=== PATIENT | male | born 1975 | race Caucasian/White ===

== ENCOUNTER 2017-05-02 07:43 | Emergency (ER) | payer MEDICAID, OTHER, SELFPAY ==
[2017-05-02] MEDS ORDERED: Sodium Chloride 0.9% 10 ML Syringe FLUSH PRN (08:08)
[2017-05-02] MEDS ORDERED: Ondansetron 4 MG/2 ML SDV IVPUSH ONE (08:08)
[2017-05-02] MEDS ORDERED: HYDROmorphone 1 MG/ML Syringe IVPUSH ONE (08:08)
[2017-05-02] MEDS ORDERED: Sodium Chloride 0.9% 1,000 ML IV SCH (08:15)
--- NOTE | 2017-05-02 10:45 | CT ---
CT abdomen and pelvis Technique: Multiple axial sections were obtained from above the dome of the diaphragm inferiorly through the pubic symphysis. Intravenous and oral contrast was not utilized. Study has been performed as a ureteral stone protocol. Findings: Left sided hydronephrosis is seen. Inflammatory change is seen around the left kidney and proximal left ureter. These findings are caused by an obstructing stone within the mid to distal left ureter measuring about 4.5 mm. This stone occurs approximately 4.5 cm from the UVJ. No other abnormal calcifications are seen along the course of the ureters. 2 nonobstructing calculi are seen within the left kidney. Right kidney shows no abnormal calcifications. Visualized lung bases shows minimal atelectasis. Liver shows no focal parenchymal abnormality. Spleen appears within normal limits. Adrenal glands show no nodule. Pancreas is within normal limits. Aorta shows no aneurysmal dilatation. No retroperitoneal adenopathy or mesenteric abnormalities are seen. No pelvic mass or adenopathy is noted. Fat-containing bilateral inguinal hernias are incidentally noted. Appendix not seen with certainty. No bowel dilatation is seen. No free fluid is seen. Bone window settings were reviewed which appears within normal limits for the patient's age. Impression: 1. Left sided hydronephrosis and other findings (as noted above) caused by a 4.5 mm obstructing stone within the mid to distal left ureter located approximately 4.5 cm from the left UVJ. 2. 2 nonobstructing calculi within the left kidney. 3. Other incidental findings as noted above. Diagnostic code #3
--- NOTE | 2017-05-02 12:03 | EDM.PDOC ---
ED HPI GENERAL MEDICAL PROBLEM - General Chief Complaint: Genitourinary Problem Stated Complaint: POSS. KIDNEY STONE Time Seen by Provider: 05/02/17 08:05 Source of Information: Reports: Patient, RN Notes Reviewed - History of Present Illness INITIAL COMMENTS - FREE TEXT/NARRATIVE: 42 year old male with episode of L flank and back pain 2 or 3 weeks ago. Pain came back, much worse and more persistent this AM Pain continues L back, flank radiating this AM to L groin. Has had some nausea and vomiting. no voiding sx. No fever or chills. Pain does not radiate to his legs, no fall or injury. Left Flank Pain Score (Numeric/FACES): 8 - Related Data Allergies Allergy/AdvReac Type Severity Reaction Status Date / Time No Known Allergies Allergy Verified 05/02/17 07:54 Home Meds: Home Meds Ciprofloxacin HCl [Cipro] 500 mg PO BID #10 tablet 05/02/17 [Rx] Levothyroxine 150 mcg PO DAILY 05/02/17 [History] Ondansetron [Zofran ODT] 4 mg PO Q8H PRN #6 tab.dis 05/02/17 [Rx] oxyCODONE HCl/Acetaminophen [Percocet 5-325 mg Tablet] 1 each PO Q6HR PRN #20 tablet 05/02/17 [Rx] Past Medical History HEENT History: Reports: Impaired Vision Other HEENT History: wears eyeglasses Cardiovascular History: Reports: Hypertension Other Cardiovascular History: was on anti-HTN medication briefly, in past. 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 Musculoskeletal History: Reports: Fracture Endocrine/Metabolic History: Reports: Hypothyroidism Dermatologic History: Reports: Eczema - Infectious Disease History Infectious Disease History: Reports: Chicken Pox - Past Surgical History GI Surgical History: Reports: Appendectomy Social & Family History - Tobacco Use Smoking Status *Q: Never Smoker - Caffeine Use Caffeine Use: Reports: Coffee, Tea - Recreational Drug Use Recreational Drug Use: No ED ROS GENERAL - Review of Systems Review Of Systems: See Below Constitutional: Reports: Diaphoresis (gone). Denies: Fever, Chills HEENT: Reports: No Symptoms Respiratory: Denies: Shortness of Breath Cardiovascular: Denies: Chest Pain GI/Abdominal: Reports: Abdominal Pain (L flank), Nausea, Vomiting. Denies: Diarrhea : Denies: Dysuria, Frequency, Hematuria, Pain Musculoskeletal: Reports: Back Pain Skin: Reports: No Symptoms Neurological: Reports: No Symptoms ED EXAM, RENAL/ - Physical Exam Exam: See Below General Appearance: Alert, Severe Distress Eye Exam: Bilateral Eye: PERRL Throat/Mouth: Normal Inspection, Normal Oropharynx Head: Atraumatic Neck: Supple, Full Range of Motion Respiratory/Chest: No Respiratory Distress, Lungs Clear, Normal Breath Sounds Cardiovascular: Regular Rate, Rhythm GI/Abdominal: Soft, Non-Tender Back Exam: CVA Tenderness (L) Extremities: Normal Inspection, Normal Range of Motion Neurological: Alert, Oriented, No Motor/Sensory Deficits Skin Exam: Warm, Dry, Normal Color Course - Vital Signs Last Recorded V/S: Last Vital Signs Temp 96.5 F 05/02/17 07:50 Pulse 106 H 05/02/17 09:11 Resp 18 05/02/17 09:11 BP 135/95 H 05/02/17 09:11 Pulse Ox 94 L 05/02/17 09:11 - Orders/Labs/Meds Orders: Active Orders 24 hr Category Date Time Status Peripheral IV Care [RC] . DIRECTED Care 05/02/17 08:09 Active Sodium Chloride 0.9% [Normal Saline] 1,000 ml Med 05/02/17 08:15 Active IV ONETIME Sodium Chloride 0.9% [Saline Flush] Med 05/02/17 08:08 Active 10 ml FLUSH ASDIRECTED PRN Peripheral IV Insertion Adult [OM.PC] Stat Oth 05/02/17 08:08 Ordered Medication Orders Sodium Chloride (Normal Saline) 1,000 mls @ 999 mls/hr IV ONETIME [facility] Last Admin: 05/02/17 08:20 Dose: 999 mls/hr Sodium Chloride (Saline Flush) 10 ml FLUSH ASDIRECTED PRN PRN Reason: Keep Vein Open Last Admin: 05/02/17 08:05 Dose: 10 ml Labs: Laboratory Tests 05/02/17 05/02/17 05/02/17 Range/Units 08:05 08:05 09:10 WBC 20.15 H (4.23-9.07) K/mm3 RBC 5.31 (4.63-6.08) M/mm3 Hgb 14.9 (13.7-17.5) gm/L Hct 44.3 (40.1-51.0) % MCV 83.4 (79.0-92.2) fl MCH 28.1 (25.7-32.2) pg MCHC 33.6 (32.2-35.5) g/dl RDW Std Deviation 44.8 H (35.1-43.9) fL Plt Count 465 H (163-337) K/mm3 MPV 9.1 L (9.4-12.3) fl Neut % (Auto) 81.2 H (34.0-67.9) % Lymph % (Auto) 9.7 L (21.8-53.1) % [place] % (Auto) 8.7 (5.3-12.2) % Eos % (Auto) 0 L (0.8-7.0) Baso % (Auto) 0.1 (0.1-1.2) % Neut # (Auto) 16.33 H (1.78-5.38) K/mm3 Lymph # (Auto) 1.96 (1.32-3.57) K/mm3 [place] # (Auto) 1.76 H (0.30-0.82) K/mm3 Eos # (Auto) 0.01 L (0.04-0.54) K/mm3 Baso # (Auto) 0.03 (0.01-0.08) K/mm3 Manual Slide Review Abnormal smear Sodium 139 (136-145) mEq/L Potassium 3.8 (3.5-5.1) mEq/L Chloride 103 (98-107) mEq/L Carbon Dioxide 25 (21-32) mEq/L Anion Gap 14.8 (5-15) BUN 18 (7-18) mg/dL Creatinine 1.5 H (0.7-1.3) mg/dL Est Cr Clr Drug Dosing 73.83 mL/min Estimated GFR (MDRD) 51 (>60) mL/min BUN/Creatinine Ratio 12.0 L (14-18) Glucose 142 H (74-106) mg/dL Calcium 9.2 (8.5-10.1) mg/dL Total Bilirubin 0.7 (0.2-1.0) mg/dL AST 21 (15-37) U/L ALT 38 (16-63) U/L Alkaline Phosphatase 111 (46-116) U/L Total Protein 8.2 (6.4-8.2) g/dl Albumin 4.2 (3.4-5.0) g/dl Globulin 4.0 gm/dL Albumin/Globulin Ratio 1.1 (1-2) Urine Color Light yellow (Yellow) Urine Appearance Clear (Clear) Urine pH 6.0 (5.0-8.0) Ur Specific [place] 1.025 (1.005-1.030) Urine Protein 2+ H (Negative) Urine Glucose (UA) Negative (Negative) Urine Ketones 2+ H (Negative) Urine Occult Blood 2+ H (Negative) Urine Nitrite Negative (Negative) Urine Bilirubin Negative (Negative) Urine Urobilinogen 0.2 (0.2-1.0) Ur Leukocyte Esterase Negative (Negative) Urine RBC 10-20 H (0-5) /hpf Urine WBC 5-10 H (0-5) /hpf Ur Epithelial Cells 0-5 (0-5) /hpf Urine Bacteria Rare (FEW) /hpf Urine Mucus Not seen (FEW) /hpf Meds: Medications Generic Name Dose Route Start Last Admin Trade Name Freq PRN Reason Stop Dose Admin Sodium Chloride 1,000 mls @ 999 mls/hr 05/02/17 08:15 05/02/17 08:20 Normal Saline IV 999 mls/hr ONETIME MIGUEL Administration Sodium Chloride 10 ml 05/02/17 08:08 05/02/17 08:05 Saline Flush FLUSH 10 ml ASDIRECTED PRN Administration Keep Vein Open Discontinued Medications Generic Name Dose Route Start Last Admin Trade Name Freq PRN Reason Stop Dose Admin Hydromorphone HCl 1 mg 05/02/17 08:08 05/02/17 08:15 Dilaudid IVPUSH 05/02/17 08:09 1 mg ONETIME ONE Administration Ondansetron HCl 4 mg 05/02/17 08:08 05/02/17 08:18 Zofran IVPUSH 05/02/17 08:09 4 mg ONETIME ONE Administration - Re-Assessments/Exams Free Text/Narrative Re-Assessment/Exam: 05/02/17 13:32 CT of abd showed a 4.5 mm stone, good relief of pain from IV dilaudid, discharge instr. as documented. Departure - Departure Time of Disposition: 11:59 Disposition: Home, Self-Care 01 Condition: Fair Clinical Impression: Kidney stone on left side UTI (urinary tract infection) Qualifiers: Urinary tract infection type: acute cystitis Hematuria presence: with hematuria Qualified Code(s): N30.01 - Acute cystitis with hematuria - Discharge Information Prescriptions: oxyCODONE HCl/Acetaminophen [Percocet 5-325 mg Tablet] 1 each PO Q6HR PRN #20 tablet PRN Reason: Pain Ciprofloxacin HCl [Cipro] 500 mg PO BID #10 tablet Ondansetron [Zofran ODT] 4 mg PO Q8H PRN #6 tab.dis PRN Reason: Nausea/Vomiting Instructions: Kidney Stones, [id number], Urinary Tract Infection, Adult Referrals: Selam Peterson DO [Primary Care Provider] - Forms: ED Department Discharge Additional Instructions: You have a 4.5 mm kidney stone on the left about [address]% [address] the way to your bladder. Strain urine to watch for passage of stone. Tylenol for mild to moderate discomfort or Percocet if needed for more severe pain. The urinalysis does show small amount of infection so do take the Cipro antibiotic prescribed 500 mg twice daily for 5 days, Zofran ODT if needed for further nausea or vomiting. Call Dr. Peterson's nurse this afternoon, request referral to see a Urologist early next week if possible. follow up clinic as needed, return to ED as needed - My Orders Last 24 Hours: My Active Orders 05/02/17 08:08 Sodium Chloride 0.9% [Saline Flush] 10 ml FLUSH ASDIRECTED PRN Peripheral IV Insertion Adult [OM.PC] Stat 05/02/17 08:09 Peripheral IV Care [RC] . DIRECTED 05/02/17 08:15 Sodium Chloride 0.9% [Normal Saline] 1,000 ml IV ONETIME - Assessment/Plan Last 24 Hours: My Active Orders 05/02/17 08:08 Sodium Chloride 0.9% [Saline Flush] 10 ml FLUSH ASDIRECTED PRN Peripheral IV Insertion Adult [OM.PC] Stat 05/02/17 08:09 Peripheral IV Care [RC] . DIRECTED 05/02/17 08:15 Sodium Chloride 0.9% [Normal Saline] 1,000 ml IV ONETIME
[2017-05-02 14:40] VITALS: BP 129/91
== END 2017-05-02 12:15 | disposition home or self-care (01) ==
LOC: JD.ED 07:43
DX: N30.01 Acute cystitis with hematuria (principal); N13.2 Hydronephrosis with renal and ureteral calculous obstruction; I10 Essential (primary) hypertension; E03.9 Hypothyroidism, unspecified; Z90.49 Acquired absence of other specified parts of digestive tract; Z79.899 Other long term (current) drug therapy
CPT/HCPCS: 36415; 74176; 80053; 81001; 85025; 96361; 96374; 96375; 99284; J1170; J2405; J7040; J7050; 99283

== ENCOUNTER 2017-05-13 21:25 | Emergency (ER) | payer MEDICAID, OTHER, SELFPAY ==
[2017-05-13 21:38] VITALS: BP 135/95
--- NOTE | 2017-05-13 23:35 | EDM.PDOC ---
ED HPI GENERAL MEDICAL PROBLEM - General Chief Complaint: Lower Extremity Injury/Pain Stated Complaint: SORE/RED/SWOLLEN BOTH LEGS Time Seen by Provider: 05/13/17 21:36 Source of Information: Reports: Patient History Limitations: Reports: No Limitations - History of Present Illness INITIAL COMMENTS - FREE TEXT/NARRATIVE: The patient presents with bilateral leg edema and pain. He also has redness to the right lower leg near a known vericose vein. He has no chest pain or shortness of breath. He was seen here for a kidney stone and UTI on the . He follow up with a urologist last week and he put a stent in and they found the patient had an infection that was spreading up his ureter. He noticed the swelling yesterday. He has pressure to both leg. He has no abdominal pain, nausea or vomiting. Onset: Gradual Duration: Day(s): Location: Reports: Lower Extremity, Left, Lower Extremity, Right Quality: Reports: Ache Severity: Moderate Improves with: Reports: None Worsens with: Reports: Movement Associated Symptoms: Reports: No Other Symptoms - Related Data Allergies Allergy/AdvReac Type Severity Reaction Status Date / Time No Known Allergies Allergy Verified 05/02/17 07:54 Home Meds: Home Meds Ciprofloxacin HCl [Cipro] 500 mg PO BID #10 tablet 05/02/17 [Rx] Levothyroxine 150 mcg PO DAILY 05/02/17 [History] Past Medical History HEENT History: Reports: Impaired Vision Other HEENT History: wears eyeglasses Cardiovascular History: Reports: Hypertension Other Cardiovascular History: was on anti-HTN medication briefly, in past. 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 Musculoskeletal History: Reports: Fracture Endocrine/Metabolic History: Reports: Hypothyroidism Dermatologic History: Reports: Eczema - Infectious Disease History Infectious Disease History: Reports: Chicken Pox - Past Surgical History GI Surgical History: Reports: Appendectomy Male Surgical History: Reports: Other (See Below) Other Male Surgeries/Procedures: kidney stent Social & Family History - Family History Family Medical History: Noncontributory - Tobacco Use Smoking Status *Q: Never Smoker - Caffeine Use Caffeine Use: Reports: Coffee, Tea - Recreational Drug Use Recreational Drug Use: No Review of Systems - Review of Systems Review Of Systems: See Below Constitutional: Reports: No Symptoms Eyes: Reports: No Symptoms Ears: Reports: No Symptoms Nose: Reports: No Symptoms Mouth/Throat: Reports: No Symptoms Respiratory: Reports: No Symptoms Cardiovascular: Reports: No Symptoms GI/Abdominal: Reports: No Symptoms Genitourinary: Reports: No Symptoms Musculoskeletal: Reports: Other (Bilateral leg chika and pain) ED EXAM, GENERAL - Physical Exam Exam: See Below Exam Limited By: No Limitations General Appearance: Alert, No Apparent Distress Ears: Normal External Exam Nose: Normal Inspection Head: Atraumatic, Normocephalic Neck: Normal Inspection Respiratory/Chest: No Respiratory Distress, Lungs Clear, Normal Breath Sounds Cardiovascular: Regular Rate, Rhythm, No Edema, No Murmur GI/Abdominal: Soft, Non-Tender, No Organomegaly, No Mass Rectal (Males) Exam: Normal Exam Back Exam: Normal Inspection Extremities: Other (Mild bilateral leg edema with erythema and more edema to the right posterior lower leg. Good sensation and pulses distally.) Neurological: Alert, Oriented, No Motor/Sensory Deficits Course - Vital Signs Last Recorded V/S: Last Vital Signs Temp 97.0 F 05/13/17 21:35 Pulse 101 H 05/13/17 21:35 Resp 16 05/13/17 21:35 BP 135/95 H 05/13/17 21:35 Pulse Ox 94 L 05/13/17 21:35 - Orders/Labs/Meds Orders: Active Orders 24 hr Category Date Time Status Antiembolic Devices [RC] PER UNIT ROUTINE Care 05/14/17 00:12 Active Venous Doppler Lwr Ext Bi [US] Stat Exams 05/13/17 21:50 Taken MARICRUZ Hose [Antiembolic Hose] [OM.PC] Routine Oth 05/14/17 00:12 Ordered Labs: Laboratory Tests 05/13/17 05/13/17 05/13/17 Range/Units 22:40 22:40 22:40 WBC 16.08 H (4.23-9.07) K/mm3 RBC 4.92 (4.63-6.08) M/mm3 Hgb 13.6 L (13.7-17.5) gm/L Hct 41.6 (40.1-51.0) % MCV 84.6 (79.0-92.2) fl MCH 27.6 (25.7-32.2) pg MCHC 32.7 (32.2-35.5) g/dl RDW Std Deviation 44.1 H (35.1-43.9) fL Plt Count 579 H (163-337) K/mm3 MPV 8.3 L (9.4-12.3) fl Neut % (Auto) 59.9 (34.0-67.9) % Lymph % (Auto) 20.0 L (21.8-53.1) % [place] % (Auto) 10.0 (5.3-12.2) % Eos % (Auto) 7.8 H (0.8-7.0) Baso % (Auto) 0.7 (0.1-1.2) % Neut # (Auto) 9.63 H (1.78-5.38) K/mm3 Lymph # (Auto) 3.22 (1.32-3.57) K/mm3 [place] # (Auto) 1.61 H (0.30-0.82) K/mm3 Eos # (Auto) 1.25 H (0.04-0.54) K/mm3 Baso # (Auto) 0.12 H (0.01-0.08) K/mm3 Manual Slide Review Normal smear D-Dimer, Quantitative 1.95 H (0.19-0.59) mg/L Sodium 137 (136-145) mEq/L Potassium 4.2 (3.5-5.1) mEq/L Chloride 102 (98-107) mEq/L Carbon Dioxide 28 (21-32) mEq/L Anion Gap 11.2 (5-15) BUN 16 (7-18) mg/dL Creatinine 1.3 (0.7-1.3) mg/dL Est Cr Clr Drug Dosing 85.19 mL/min Estimated GFR (MDRD) > 60 (>60) mL/min BUN/Creatinine Ratio 12.3 L (14-18) Glucose 115 H (74-106) mg/dL Calcium 8.9 (8.5-10.1) mg/dL Total Bilirubin 0.3 (0.2-1.0) mg/dL AST 26 (15-37) U/L ALT 66 H (16-63) U/L Alkaline Phosphatase 87 (46-116) U/L Total Protein 7.6 (6.4-8.2) g/dl Albumin 3.5 (3.4-5.0) g/dl Globulin 4.1 gm/dL Albumin/Globulin Ratio 0.9 L (1-2) - Re-Assessments/Exams Free Text/Narrative Re-Assessment/Exam: 05/13/17 23:34 I ordered labs and an US of both of his legs. 05/14/17 00:25 His WBC was elevated at 16.08. That has improved from 20 on the 5th. His platelets are elevated at 579. His D-dimer is elevated at 1.95. His ALT was elevated at 66. The US of both legs shows superficial thrombophlebitis right calf. No evidence of DVT. I will get him some MARICRUZ hose from here. He cannot take aspirin or an antiinflammatory according to his urologist. I will have him call his urologist and let him know what is going on. He is to see Dr Peterson on Sunday. Departure - Departure Time of Disposition: 00:30 Disposition: Home, Self-Care 01 Condition: Good Clinical Impression: Superficial thrombophlebitis of right leg, Kidney stone on left side UTI (urinary tract infection) Qualifiers: Urinary tract infection type: acute cystitis Hematuria presence: with hematuria Qualified Code(s): N30.01 - Acute cystitis with hematuria - Discharge Information Referrals: Selam Peterson DO [Primary Care Provider] - (Follow up this week) Forms: ED Department Discharge Additional Instructions: Wear the MARICRUZ hose daily. Follow up with Dr Peterson this week and call you urologist tomorrow and let him know what is going on and see if you can have antiinflammatories. Please return if you are worse. - My Orders Last 24 Hours: My Active Orders 05/13/17 21:50 Venous Doppler Lwr Ext Bi [US] Stat 05/14/17 00:12 Antiembolic Devices [RC] PER UNIT ROUTINE MARICRUZ Hose [Antiembolic Hose] [OM.PC] Routine - Assessment/Plan Last 24 Hours: My Active Orders 05/13/17 21:50 Venous Doppler Lwr Ext Bi [US] Stat 05/14/17 00:12 Antiembolic Devices [RC] PER UNIT ROUTINE MARICRUZ Hose [Antiembolic Hose] [OM.PC] Routine
--- NOTE | 2017-05-14 10:53 | US ---
Bilateral lower extremity deep venous ultrasound: Duplex and color flow imaging was obtained of the right and left common femoral, proximal greater saphenous, superficial femoral, popliteal, posterior tibial and peroneal veins. Findings: No phasic flow is seen within the left posterior tibial and peroneal veins but normal compression and augmentation is seen within these 2 veins. Other veins show normal phasic flow, augmentation and compression. Superficial vein within the right calf shows evidence of thrombus compatible with superficial thrombophlebitis. Impression: 1. Superficial thrombophlebitis within the right calf. 2. No evidence of deep venous thrombosis is seen within either the right or left lower extremities. Diagnostic code #3 I agree with preliminary report issued by [facility] ([facility] report finalized on 05/14/17, 12:30 AM Central Time)
== END 2017-05-14 00:43 | disposition home or self-care (01) ==
LOC: JD.ED 21:25
DX: I80.01 Phlebitis and thrombophlebitis of superficial vessels of right lower extremity (principal); N20.0 Calculus of kidney; N30.01 Acute cystitis with hematuria; I10 Essential (primary) hypertension; E03.9 Hypothyroidism, unspecified; Z90.49 Acquired absence of other specified parts of digestive tract
CPT/HCPCS: 36415; 80053; 85025; 85379; 93970; 93970-26; 99283; 99284-25

== ENCOUNTER 2023-01-29 14:23 | Inpatient (IN) | payer BC ==
[2023-01-29] MEDS ORDERED: Sodium Chloride 0.9% 10 ML Syringe FLUSH PRN (14:38)
[2023-01-29] MEDS ORDERED: methylPREDNISolone Sodium Succinate 125 MG/2 ML SDV IVPUSH ONE (14:39)
[2023-01-29] MEDS: Albuterol 0.083% 2.5 MG/3 ML Neb Soln NEB SCH ×3 (14:51→16:12)
[2023-01-29] MEDS ORDERED: cefTRIAXone 2 GM in Sodium Chloride 0.9% 100 ML IV ONE (15:31)
[2023-01-29 15:38] LABS: CORONAVIRUS COVID-19 NAA NEGATIVE (NEGATIVE)
[2023-01-29] MEDS ORDERED: oxyCODONE 5 MG Tab PO PRN (16:09)
[2023-01-29] MEDS ORDERED: Acetaminophen 325 MG Tab PO PRN (16:09)
[2023-01-29] MEDS ORDERED: Temazepam 7.5 MG Cap PO PRN (16:09)
[2023-01-29] MEDS ORDERED: Ondansetron 4 MG Tab.DIS PO PRN (16:09)
[2023-01-29] MEDS ORDERED: Docusate Sodium 100 MG Cap PO PRN (16:09)
[2023-01-29] MEDS ORDERED: Magnesium Sulfate/Water 2 GM/50 ML BAG IV ONE (16:16)
[2023-01-29] MEDS ORDERED: Albuterol 6.7 GM Inhaler INH PRN (17:19)
[2023-01-29] MEDS: Sodium Chloride 0.9% 1,000 ML IV SCH (17:35)
[2023-01-29] MEDS: Meropenem 1 GM in Sodium Chloride 0.9% 100 ML IV SCH (17:37)
[2023-01-30] MEDS: Sodium Chloride 0.9% 1,000 ML IV SCH ×3 (00:03→17:59)
[2023-01-30] MEDS: Meropenem 1 GM in Sodium Chloride 0.9% 100 ML IV SCH ×3 (00:03→16:31)
[2023-01-30] MEDS: Levothyroxine 75 MCG Tab PO SCH (06:12)
[2023-01-30] MEDS: Enoxaparin 30 MG/0.3 ML Syringe SUBCUT SCH (07:50)
[2023-01-30] MEDS: Albuterol/Ipratropium 3.0-0.5 MG/3 ML Neb Soln NEB PRN ×5 (08:06→23:59)
[2023-01-30] MEDS ORDERED: Enoxaparin 30 MG/0.3 ML Syringe SUBCUT SCH (09:00)
[2023-01-30] MEDS ORDERED: Enoxaparin 40 MG/0.4 ML Syringe SUBCUT SCH (09:00)
[2023-01-30] MEDS: VILANTEROL INH SCH (09:10)
[2023-01-30] MEDS: FLUTICASONE INH SCH (09:10)
[2023-01-30] MEDS: methylPREDNISolone Sodium Succinate 125 MG/2 ML SDV IVPUSH SCH (13:34)
[2023-01-31] MEDS: Meropenem 1 GM in Sodium Chloride 0.9% 100 ML IV SCH ×3 (00:53→16:30)
[2023-01-31] MEDS: methylPREDNISolone Sodium Succinate 125 MG/2 ML SDV IVPUSH SCH ×2 (00:53→13:26)
[2023-01-31] MEDS: Albuterol/Ipratropium 3.0-0.5 MG/3 ML Neb Soln NEB PRN ×5 (06:17→21:33)
[2023-01-31] MEDS: Levothyroxine 75 MCG Tab PO SCH (06:38)
[2023-01-31] MEDS: Enoxaparin 30 MG/0.3 ML Syringe SUBCUT SCH (07:33)
[2023-01-31] MEDS: Sodium Chloride 0.9% 1,000 ML IV SCH ×2 (07:39→20:58)
[2023-01-31] MEDS: FLUTICASONE INH SCH (09:07)
[2023-01-31] MEDS: VILANTEROL INH SCH (09:07)
[2023-02-01] MEDS: methylPREDNISolone Sodium Succinate 125 MG/2 ML SDV IVPUSH SCH (00:09)
[2023-02-01] MEDS: Meropenem 1 GM in Sodium Chloride 0.9% 100 ML IV SCH ×2 (00:09→08:22)
[2023-02-01] MEDS: Albuterol/Ipratropium 3.0-0.5 MG/3 ML Neb Soln NEB PRN ×2 (02:40→08:16)
[2023-02-01] MEDS: Levothyroxine 75 MCG Tab PO SCH (05:26)
[2023-02-01] MEDS: VILANTEROL INH SCH (08:17)
[2023-02-01] MEDS: FLUTICASONE INH SCH (08:17)
[2023-02-01] MEDS: Enoxaparin 30 MG/0.3 ML Syringe SUBCUT SCH (08:21)
[2023-02-01 08:41] VITALS: BP 129/95; PULSE 84
== END 2023-02-01 10:47 | disposition home or self-care (01) | DRG 720 ==
LOC: JD.ED 14:23 → JD.ICU 16:09 → UNDOADMIN 16:09
PROVIDERS: ADMIT Internal Medicine; ATTEND Internal Medicine
PROC: 3E03329 Introduction of Other Anti-infective into Peripheral Vein, Percutaneous Approach (ICD-10-PCS; principal; 2023-01-29)
PROC: 4A033R1 Measurement of Arterial Saturation, Peripheral, Percutaneous Approach (ICD-10-PCS; 2023-01-29)
DX: A41.9 Sepsis, unspecified organism (principal); R65.20 Severe sepsis without septic shock; J18.9 Pneumonia, unspecified organism; J96.01 Acute respiratory failure with hypoxia; E87.6 Hypokalemia; E86.0 Dehydration; Z20.822 Contact with and (suspected) exposure to COVID-19; E83.42 Hypomagnesemia; J45.41 Moderate persistent asthma with (acute) exacerbation; H54.7 Unspecified visual loss; E03.9 Hypothyroidism, unspecified; I10 Essential (primary) hypertension; Z90.49 Acquired absence of other specified parts of digestive tract; Z79.890 Hormone replacement therapy; Z87.442 Personal history of urinary calculi; Z79.52 Long term (current) use of systemic steroids
CPT/HCPCS: 0240U; 36415; 36600; 71045; 71045-26; 71250; 71250-26; 80053; 82103; 82803; 83605; 83735; 83880; 84484; 85025; 85379; 85610; 85730; 87040; 93005; 93010; 94640; 96365; 96367; 99285; 99285-25; A9270-GY; J0696; J1650; J2185; J2930; J3475; J3490; J7030; J7620-GY

== ENCOUNTER 2023-05-31 22:38 | Emergency (ER) | payer BC ==
[2023-05-31 22:52] LABS: BASE EXCESS ARTERIAL -10.8 (-2-2.0); BICARBONATE,ARTERIAL 24.8 meq/L (22.0-26.0); O2 SATURATION ARTERIAL 98.7 % (96.0-97.0)
[2023-05-31] MEDS ORDERED: Rocuronium 50 MG/5 ML Vial IVPUSH STA (22:52)
[2023-05-31] MEDS ORDERED: Albuterol/Ipratropium 3.0-0.5 MG/3 ML Neb Soln NEB ONE (22:52)
[2023-05-31 22:53] LABS: PCO2 ARTERIAL 106.4 mmHg (35.0-45.0)
[2023-05-31 22:58] LABS: HEMATOCRIT 45.4 % (40.1-51.0); HEMOGLOBIN 14.9 gm/dl (13.7-17.5); MEAN CORPUSCULAR HEMOGLOBIN 28.5 pg (25.7-32.2); MEAN CORPUSCULAR HGB CONC 32.8 g/dl (32.2-35.5); MEAN PLATELET VOLUME 8.8 fl (9.4-12.3); PLATELET COUNT,PLT 598 K/mm3 (163-337); RED BLOOD CELL COUNT 5.22 M/mm3 (4.63-6.08); WHITE BLOOD CELL COUNT,WBC 18.79 K/mm3 (4.23-9.07)
[2023-05-31] MEDS: propofoL 100 ML IV SCH (23:04)
[2023-05-31 23:18] LABS: PROTHROMBIN TIME 10.7 SECONDS (9.7-12.0)
[2023-05-31 23:19] LABS: D-DIMER QUANTITATIVE 0.36 mg/L (0.19-0.50)
[2023-05-31 23:20] LABS: PTT,PARTIAL THROMBOPLSTIN TIME 26.3 SECONDS (21.7-31.4)
[2023-05-31 23:36] LABS: A/G RATIO 1.1 (1-2); BILIRUBIN TOTAL 0.3 mg/dL (0.2-1.0); C-REACTIVE PROTEIN 0.5 mg/dL (<1.0); CALCIUM 8.7 mg/dL (8.5-10.1); CREATININE 1.3 mg/dL (0.7-1.3); EST CRCL DRUG DOSING (CG) 77.68 mL/min; MAGNESIUM 1.9 mg/dL (1.8-2.4); PROTEIN TOTAL,TP 7.5 g/dl (6.4-8.2)
[2023-05-31 23:38] LABS: BAND PERCENT MAN 0 % (0-10); BASOPHILS PERCENT MAN 2 (0.2-1.2); EOSINOPHILS PERCENT MAN 21 % (0.8-7.0); LYMPHOCYTES % ATYPICAL MANUAL 0 %; LYMPHOCYTES PERCENT MAN 38 % (20-40); MONOCYTES PERCENT MAN 8 % (2-10)
[2023-05-31 23:41] LABS: PLATELET COUNT ESTIMATE INCREASED
[2023-05-31 23:48] LABS: CORONAVIRUS COVID-19 NAA NEGATIVE (NEGATIVE); INFLUENZA A NAA NEGATIVE (NEGATIVE); RESPIRATORY SYNCYTIAL VIR NAA NEGATIVE (NEGATIVE)
[2023-06-01 00:26] LABS: BASE EXCESS ARTERIAL -5.4 (-2-2.0); BICARBONATE,ARTERIAL 28.3 meq/L (22.0-26.0); O2 SATURATION ARTERIAL 88.8 % (96.0-97.0)
[2023-06-01 00:27] LABS: PCO2 ARTERIAL 98.9 mmHg (35.0-45.0)
[2023-06-01] MEDS ORDERED: Sodium Chloride 0.9% 1,000 ML IV SCH (01:15)
[2023-06-01] MEDS ORDERED: fentaNYL 2,500 MCG in Sodium Chloride 0.9% 200 ML IV SCH (01:15)
[2023-06-01] MEDS: propofoL 100 ML IV SCH ×2 (01:31→07:02)
[2023-06-01 01:57] LABS: BASE EXCESS ARTERIAL -3.2 (-2-2.0); PCO2 ARTERIAL 47.4 mmHg (35.0-45.0)
[2023-06-01 05:02] LABS: BASE EXCESS ARTERIAL -4.2 (-2-2.0); BICARBONATE,ARTERIAL 17.3 meq/L (22.0-26.0); O2 SATURATION ARTERIAL 97.7 % (96.0-97.0); PCO2 ARTERIAL 23.7 mmHg (35.0-45.0)
[2023-06-01 07:50] VITALS: BP 76/59; PULSE 83
== END 2023-06-01 07:45 ==
LOC: JD.ED 22:38
DX: J96.02 Acute respiratory failure with hypercapnia (principal); J45.909 Unspecified asthma, uncomplicated; E03.9 Hypothyroidism, unspecified; Z79.51 Long term (current) use of inhaled steroids; Z79.899 Other long term (current) drug therapy; Z20.822 Contact with and (suspected) exposure to COVID-19
CPT/HCPCS: 0241U; 31500; 36415; 36600; 43752; 51702; 71045; 80053; 82803; 83605; 83735; 83880; 84484; 85007; 85027; 85379; 85610; 85730; 86140; 87040; 93005; 94640; 96365; 96366; 99285; J2704; J3010; J7030; J7050; 93010; 99284; J7620-GY